=== PATIENT | male | born 1970 | race Two or more races ===

== ENCOUNTER 2017-05-17 14:53 | Emergency (ER) | payer MEDICAID, OTHER ==
[~2017-05-17] VITALS: Ht 165.1 cm; Wt 65.0 kg
[~2017-05-17 14:53] MED LIST: ALBU8HFA PO; BENZ1TAB7 PO; LURA80TA3 PO; QUET-1 PO
[2017-05-17 15:07] VITALS: BP 150/90
== END 2017-05-18 00:10 | disposition home or self-care (01) ==
LOC: ER 14:54
DX: F15.159 Other stimulant abuse with stimulant-induced psychotic disorder, unspecified (principal); F31.60 Bipolar disorder, current episode mixed, unspecified; F22 Delusional disorders
CPT/HCPCS: 99284